=== PATIENT | female | born 1950 | race Caucasian/White ===

== ENCOUNTER 2020-11-07 09:47 | Day surgery (SDC) | payer MEDICARE, BC ==
[2020-11-07] MEDS ORDERED: Acetaminophen 500 MG TAB ONE (09:58)
[2020-11-07] MEDS ORDERED: diphenhydrAMINE 50 MG/ML VIAL ONE (09:58)
== END 2020-11-07 12:45 | disposition home or self-care (01) ==
LOC: CSHSDC/OP 09:47
PROVIDERS: ATTEND Family Medicine
DX: Z23 Encounter for immunization (principal); U07.1 COVID-19
CPT/HCPCS: M0243; Q0243; J1200; J7050

== ENCOUNTER 2022-07-10 15:29 | Outpatient (CLI) | payer MEDICARE, BC | END 2022-07-10 15:30 | disposition home or self-care (01) | LOC: CSHMAMMO 15:29 | PROVIDERS: ATTEND Family Medicine | DX: Z12.31 Encounter for screening mammogram for malignant neoplasm of breast (principal); Z80.3 Family history of malignant neoplasm of breast | CPT/HCPCS: 77063; 77067 ==

== ENCOUNTER 2023-03-26 14:07 | Outpatient (CLI) | payer MEDICARE, BC | END 2023-03-26 14:08 | disposition home or self-care (01) | LOC: CSHMAMMO 14:07 | PROVIDERS: ATTEND Family Medicine | DX: Z13.820 Encounter for screening for osteoporosis (principal); M85.851 Other specified disorders of bone density and structure, right thigh; M85.852 Other specified disorders of bone density and structure, left thigh; Z78.0 Asymptomatic menopausal state | CPT/HCPCS: 77080 ==

== ENCOUNTER 2023-09-17 13:12 | Outpatient (CLI) | payer MEDICARE, BC | END 2023-09-17 13:13 | disposition home or self-care (01) | LOC: CSHMAMMO 13:12 | PROVIDERS: ATTEND Family Medicine | DX: Z12.31 Encounter for screening mammogram for malignant neoplasm of breast (principal); Z80.3 Family history of malignant neoplasm of breast | CPT/HCPCS: 77063; 77067 ==